=== PATIENT | female | born 1945 | race Caucasian/White ===

== ENCOUNTER 2018-04-08 13:18 | Outpatient (CLI) | payer MEDICARE | END 2018-04-08 23:59 | disposition home or self-care (01) | LOC: RAD 13:18 | PROVIDERS: ATTEND Nurse Practitioner | DX: I67.82 Cerebral ischemia (principal); G31.9 Degenerative disease of nervous system, unspecified; I10 Essential (primary) hypertension; R42 Dizziness and giddiness; R51 Headache | CPT/HCPCS: 70544; 70547; 70551 ==